=== PATIENT | male | born 1980 | race Caucasian/White ===

== ENCOUNTER 2022-05-30 14:23 | Outpatient (CLI) | payer OTHER | END 2022-05-30 14:24 | disposition home or self-care (01) | LOC: CSHLAB 14:23 | DX: U07.1 COVID-19 (principal) | CPT/HCPCS: 87811 ==

== ENCOUNTER 2022-06-10 10:20 | Outpatient (CLI) | payer OTHER | END 2022-06-10 10:21 | disposition home or self-care (01) | LOC: CSHCP 10:20 | PROVIDERS: ATTEND Student in an Organized Health Care Education/Training Program | DX: R06.02 Shortness of breath (principal) | CPT/HCPCS: 94060; 94726; 94729; 94760 ==